=== PATIENT | male | born 1970 | race Caucasian/White ===

== ENCOUNTER 2020-05-07 18:08 | Emergency (ER) | payer OTHER ==
--- OUTSIDE RECORDS SUMMARY | 2020-05-07 18:10 | XMS REPORT | Clinical Summary ---
:1970 Author Organization [facility] Address [address] [place] [id number] Care Team Providers Name Role Phone Omar Sutherland MD Primary Care Provider [phone] Allergies No Known Active Allergies Medications Medication Sig Dispensed Refills Start Date End Date Status meloxicam (MOBIC) 7.5 Take 7.5 mg by 0 06/27/2018 Active mg tablet mouth daily. with food Active Problems Problem Noted Date Obesity (BMI 30-39.9) 07/19/2018 Primary osteoarthritis involving multiple joints 07/19 LAP-BAND surgery status 07/19/2018 Surgical History Surgery Date Site/Laterality Comments OTHER SURGICAL HISTORY 2008 lap band Family History Medical History Relation Name Comments Diabetes Father Heart disease Father Thyroid disease Father Heart disease Maternal Grandmother Diabetes Mother Ovarian cancer Mother Uterine cancer Mother Heart disease Other maternal uncle Skin cancer Paternal Grandfather Breast cancer Paternal Grandmother Relation Name Status Comments Father Maternal Grandmother Mother Other Paternal Grandfather Paternal Grandmother Social History Tobacco Use Types Packs/Day Years Used Date Former Smoker Smokeless Tobacco: Former User Sex Assigned at Date Recorded Not on file Last Filed Vital Signs Not on file Plan of Treatment Health Maintenance Due Date Last Done Comments COVID-19 VACCINE (1 of 2) 1987 INFLUENZA VACCINE 11/10/2019 Results Not on fileafter 05/07/2019 Advance Directives For more information, please contact: [phone] Type Date Recorded 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
--- OUTSIDE RECORDS SUMMARY | 2020-05-07 18:10 | XMS REPORT | Summary of Care ---
:1970 Author Organization [facility] Address [address] [place] [id number] Care Team Providers Name Role Phone Omar Sutherland Primary Care Provider Reason for Visit Reason Comments Back Pain right lower back x 2 days Encounter Details Date Type Department Care Team Description 05/07/2020 Urgent Care [facility] Family Alicia Xiong, PA [address] [place] [address] [place] [id number] Acute right-sided low back pain without sciatica (Primary Dx); [facility] Provider, [facility] Elevated BP without diagnosis of hyperte nsion [address] [place] [id number] Allergies No Known Allergiesdocumented as of this encounter (statuses as of 05/07/2020) Medications Medication Sig Dispensed Refills Start Date End Date Status meloxicam 15 mg tablet Take 15 mg by 0 Active mouth daily. methocarbamoL (ROBAXIN) Take 1 tablet 10 tablet 0 05/07/2020 0 05/12/2020 Active 500 mg by mouth 2 tabletIndications: (two) times Acute right-sided low daily as needed back pain without (Muscle sciatica strain/spasm) for up to 5 days. documented as of this encounter (statuses as of 05/07/2020) Active Problems No known active problemsdocumented as of this encounter (statuses as of 05/07/2020) Social History Tobacco Use Types Packs/Day Years Used Date Former Smoker Smokeless Tobacco: Never Used Qu it: 2016 Tobacco Cessation: Counseling Given: Yes Alcohol Use Drinks/Week oz/Week Comments Not Currently Alcohol Habits Answer Date Recorded How often do you have a drink containing alcohol? Never 05/07/2020 How many drinks containing alcohol do you have on a typical Not asked 05/07/2020 day when you are drinking? How often do you have six or more drinks on one occasion? 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 documented as of this encounter Last Filed Vital Signs Vital Sign Reading Time Taken Comments Blood Pressure 155/96 05/07/2020 10:52 AM CABLE SPLICER HELPER Pulse 59 05/07/2020 10:46 AM CABLE SPLICER HELPER Temperature 36 C (96.8 F) 05/07/2020 10:46 AM CABLE SPLICER HELPER Respiratory Rate 20 05/07/2020 10:46 AM CABLE SPLICER HELPER Oxygen Saturation 99% 05/07/2020 10:46 AM CABLE SPLICER HELPER Inhaled Oxygen Concentration - - Weight 128.4 kg (283 lb) 05/07/2020 10:46 AM CABLE SPLICER HELPER Height 190.5 cm (6' 3") 05/07/2020 10:46 AM CABLE SPLICER HELPER Body Mass Index 35.37 05/07/2020 10:46 AM CABLE SPLICER HELPER documented in this encounter Patient Instructions Patient InstructionsLauryn Xiong PA - 05/07/2020 10:40 AM CST Patient Education Back Exercises: Abdominal Lift Brace with Marching The abdominal lift brace with june strengthens your lower abdominal muscles, helping you keep your pelvis and back stable: Lie on the floor with both knees bent. Put your feet flat on the floor and your arms by your sides. Tighten your abdominal muscles. Be sure to continue to breathe. Lift one bent knee about 2 inches then return it to the floor and lift the other about 2 inches.Keep your abdominal muscles tight and continue to breathe. These motions should be slow and controlled without your pelvis rocking side to side. [id number]. [employer] reviewed this educational content on 06/09/201719991637-9274 [employer] [place] [address], [place] [address]. All rights reserved. This information is not intended as a substitute for professional medical care. Always follow your healthcare professional's instructions. Patient Education Back Exercises: Back Release Do this exercise on your hands and knees. Keep your knees under your hips and your hands under your shoulders. Relax your abdominal and buttocks muscles, lift your head, and let your back sag. Be sure to keepyour weight evenly distributed. Dont sit back on your hips. Hold [id number]. Return to starting position. Tuck your head and lift (arch) your back. Hold for 5 seconds Return to starting position. [id number]. [employer] last reviewed this educational content on 06/09/201719993119-8440 [employer]. [address] [place] [address]. All rights reserved. This information is not intended as a substitute for professional medical care. Always follow your healthcare professional's instructions. Patient Education Back Exercises: Leg Pull To start, lie on your back with your knees bent and feet flat on the floor. Dont press your neck or lower back to the floor. Breathe deeply. You should feel comfortable and relaxed in this position. Pull one knee to your chest. Hold for30 to 60seconds. Return to starting position. [id number]. Switch legs. For a double leg pull, pull both legs to your chest at the same time. [id number]. For your safety, check with your healthcare provider before starting an exercise program. [employer] last reviewed this educational content on 06/09/2017 [employer]. [address] [place] [address]. All rights reserved. This information is not intended as a substitute for professional medical care. Always follow your healthcare professional's instructions. Patient Education Back Exercises: Leg Reach Do this exercise on your hands and knees. Keep your knees under your hips and your hands under your shoulders. Keep your spine in a neutral position (not arched or sagging). Be sure to maintain your necks natural curve: Extend one leg straight back. Dont arch your back or let your head or body sag. Hold [id number]. Return to starting position. Repeat 5times. Switch legs. [employer] last reviewed this educational content on 06/09/201719990509-4624 [employer]. [address] [place] [address]. All rights reserved. This information is not intended as a substitute for professional medical care. Always follow your healthcare professional's instructions. Patient Education Back Exercises: Lower Back Rotation To start, lie on your back with your knees bent and feet flat on the floor. Dont press your neck or lower back to the floor. Breathe deeply. You should feel comfortable and relaxed in this position. Drop both knees to one side. Turn your head to the other side. Keep your shoulders flat on the floor. Do not push through pain. Hold [id number]. Slowly switch sides. Repeat2 to 5times. [employer] last reviewed this educational content on 06/09/201719998060-7039 [employer]. [address] [place] [address]. All rights reserved. This information is not intended as a substitute for professional medical care. Always follow your healthcare professional's instructions. Patient Education Back Exercises: Lower Back Stretch To start, sit in a chair with your feet flat on the floor. Shift your weight slightly forward. Relax, and keep your ears, shoulders, and hips aligned while you do the following: Sit with your feet well apart. Bend forward and touch the floor with the backs of your hands. Relax and let your body drop. Hold for 20seconds. Return to starting position. Repeat 2times. Note: If you've had back or hip surgery, talk with your healthcare provider before doing this stretch. [employer] last reviewed this educational content on 07/11/201919994653-4401 [employer]. All rights reserved. This information is not intended as a substitute for professional medical care. Always follow your healthcare professional's instructions. Patient Education Methocarbamol tablets Brand Name: Robaxin What is this medicine? METHOCARBAMOL (meth oh LOGAN ba mole) helps to relieve pain and stiffness in muscles caused by strains, sprains, or other injury to your muscles. How should I use this medicine? Take this medicine by mouth with a full glass of water. Follow the directions on the prescription label. Take your medicine at regular intervals. Do not take your medicine more often than directed. Talk to your carburizing furnace operator regarding the use of this medicine in children. Special care may be needed. What side effects may I notice from receiving this medicine? Side effects that you should report to your doctor or health care coordinator as soon as possible: allergic reactions like skin rash, itching or hives, swelling of the face, lips, or tongue breathing problems confusion seizures unusually weak or tired Side effects that usually do not require medical attention (report to your doctor or health care coordinator if they continue or are bothersome): dizziness headache metallic taste tiredness upset stomach What may interact with this medicine? Do not take this medication with any of the following medicines: narcotic medicines for cough This medicine may also interact with the following medications: alcohol antihistamines for allergy, cough and cold certain medicines for anxiety or sleep certain medicines for depression like amitriptyline, fluoxetine, sertraline certain medicines for seizures like phenobarbital, primidone cholinesterase inhibitors like neostigmine, ambenonium, and pyridostigmine bromide general anesthetics like halothane, isoflurane, methoxyflurane, propofol local anesthetics like lidocaine, pramoxine, tetracaine medicines that relax muscles for surgery narcotic medicines for pain phenothiazines like chlorpromazine, mesoridazine, prochlorperazine, thioridazine What if I miss a dose? If you miss a dose, take it as soon as you can. If it is almost time for your next dose, take only the next dose. Do not take double or extra doses. Where should I keep my medicine? Keep out of the reach of children. Store at room temperature between 20 and 25 degrees C (68 and 77 degrees F). Keep container tightly closed. Throw away any unused medicine after the expiration date. What should I tell my health care provider before I take this medicine? They need to know if you have any of these conditions: kidney disease seizures an unusual or allergic reaction to methocarbamol, other medicines, foods, dyes, or preservatives or trying to get breast-feeding What should I watch for while using this medicine? Tell your doctor or health care coordinator if your symptoms do not start to get better or if they get worse. You may get drowsy or dizzy. Do not drive, use machinery, or do anything that needs mental alertnessuntil you know how this medicine affects you. Do not stand or sit up quickly, especially if you are an older patient. This reduces the risk of dizzy or fainting spells. Alcohol may interfere with the effect of this medicine. Avoid alcoholic drinks. If you are taking another medicine that also causes drowsiness, you may have more side effects. [facility] care provider a list of all medicines you use. Your doctor will tell you how much medicine to take. Do not take more medicine than directed. Call emergency for help if you have problems breathing or unusual sleepiness. NOTE:This sheet is a summary. It may not cover all possible information. If you have questions aboutthis medicine, talk to your doctor, pharmacist, or health care provider. Copyright 2018 [employer] E SPLICER HELPER documented in this encounter Progress Notes Damari Noyola RN - 05/07/2020 10:40 AM CST Will Dwyer is a 50 year old male here for Chief Complaint Patient presents with Back Pain right lower back x 2 days Duration of Symptoms: 2 days Patient came in for complains of right lower back pain radiates to lower abdomen x 2 days. Denies recent injury or trauma. Denies numbness or tinlging to extremeities. Denies urinary symptoms or hematuria. Awake and alert x 4. Ambulatory with steady gait. Respirations even and non-labored. Skin dry and warm. Damari Reyes RN 05/07/2020 10:50 AM Lauryn Terrazas PA - 05/07/2020 10:40 AM CST Cc: Chief Complaint Patient presents with Back Pain right lower back x 2 days Will Dwyer is a 50 year old male. Patient here for R sided low back pain that began 2 days ago after working in the yard. Back Pain Location: Lumbar spine Quality: feels tight. Duration: 2 days Timing: Constant Progression: Unchanged Chronicity: New Context: not emotional stress, not falling, not MCA and not MVA Context comment: + working in the yard moving things around (denies heavy objects) Relieved by: Nothing Worsened by: Nothing Ineffective treatments: meloxicam 15 mg from PCP. Associated symptoms: no abdominal pain, no abdominal swelling, no bladder incontinence, no bowel incontinence, no chest pain, no dysuria, no fever, no headaches, no leg pain, no numbness, no paresthesias, no pelvic pain, no perianal numbness, no tingling, no weakness and no weight loss Allergies Will has No Known Allergies. Medications No outpatient medications prior to visit. No facility-administered medications prior to visit. Histories History reviewed. No pertinent past medical history. History reviewed. No pertinent surgical history. Social History Socioeconomic History Marital status: Spouse name: Not on file Number of children: Not on file Years of education: Not on file Highest education level: Not on file Occupational History Not on file Social Needs Financial resource strain: Not on file Food insecurity Worry: Not on file Inability: Not on file Transportation needs Medical: Not on file Non-medical: Not on file Tobacco Use Smoking status: Former Smoker Smokeless tobacco: Never Used Substance and Sexual Activity Alcohol use: Not Currently Frequency: Never Binge frequency: Never Drug use: Never Sexual activity: Not on file Lifestyle Physical activity Days per week: Not on file Minutes per session: Not on file Stress: Not on file Relationships Social connections Talks on phone: Not on file Gets together: Not on file Attends bahai service: Not on file Active member of club or organization: Not on file Attends meetings of clubs or organizations: Not on file Relationship status: Not on file Intimate partner violence Fear of current or ex partner: Not on file Emotionally abused: Not on file Physically abused: Not on file Forced sexual activity: Not on file Other Topics Concern Not on file Social History Narrative Lives with and kids Family History Problem Relation Age of Onset No Significant Medical Problems Mother No Significant Medical Problems Father Review of Systems Constitutional: Negative for activity change, appetite change, chills, fever, unexpected weight change and weight loss. Respiratory: Negative for chest tightness and shortness of breath. Cardiovascular: Negative for chest pain, palpitations and leg swelling. Gastrointestinal: Negative for abdominal pain, bowel incontinence, constipation, diarrhea, nausea and vomiting. Genitourinary: Negative for bladder incontinence, dysuria, urgency, frequency, hematuria, flank pain, decreased urine volume, difficulty urinating, pelvic pain and nocturia. Musculoskeletal: Positive for back pain. Negative for arthralgias, gait problem, joint swelling, myalgias, neck pain and neck stiffness. Skin: Negative for color change. Neurological: Negative for dizziness, tingling, weakness, light-headedness, numbness, headaches and paresthesias. Endocrine: Negative for weight loss. Vital Signs BP (!) 155/96 (BP Location: Right arm, Patient Position: Sitting, BP CUFF SIZE: Adult Large) | Pulse 59 | Temp 36 C (96.8 F) (Oral) | Resp 20 | Ht 6' 3" (1.905 m) | Wt 283 lb (128.4 kg) | SpO2 99% | BMI 35.37 kg/m Physical Exam Vitals signs and nursing note reviewed. Constitutional: General: He is not in acute distress. Appearance: He is well-developed. He is not ill-appearing, toxic-appearing or diaphoretic. HENT: Head: Normocephalic and atraumatic. Right Ear: External ear normal. Left Ear: External ear normal. Eyes: Conjunctiva/sclera: Conjunctivae normal. Neck: Musculoskeletal: Normal range of motion. Cardiovascular: Rate and Rhythm: Normal rate and regular rhythm. Heart sounds: Normal heart sounds. Pulmonary: Effort: Pulmonary effort is normal. Breath sounds: Normal breath sounds. Abdominal: General: Bowel sounds are normal. There is no distension. Palpations: Abdomen is soft. Abdomen is not rigid. Tenderness: There is no abdominal tenderness. There is no right CVA tenderness, left CVA tenderness, guarding or rebound. Musculoskeletal: Lumbar back: He exhibits decreased range of motion (decreased left and right rotation due to pain), tenderness (muscle tenderness/tightness at R lower back) and pain. He exhibits no swelling, no edema, no deformity, no laceration and normal pulse. Back: Right lower leg: No edema. Left lower leg: No edema. Skin: General: Skin is warm and dry. Neurological: Mental Status: He is alert and oriented to person, place, and time. Sensory: No sensory deficit. Motor: No abnormal muscle tone. Gait: Gait normal. Psychiatric: Behavior: Behavior normal. Assessment/Plan Acute right-sided low back pain without sciatica (primary encounter diagnosis) Plan: methocarbamoL (ROBAXIN) 500 mg tablet Likely 2/2 muscle strain/spasm. Patient already on meloxicam per PCP. Denies pmh of seizures. Will start on robaxin. Take as directed. Avoid etoh use. Do not take if driving or operating machinery. Follow-up with PCP as needed, recommend imaging if no improvement. Educated on the following at home care: Ice 15 min every 2-3 hours as needed; alternate with warm compress Stretches 2-3 times daily Icy hot as needed Massages as needed Avoid heavy lifting > 10 lbs Wear good, supportive tennis shoes Er--> worsening condition; increasing pain, incontinence, weakness, numbness/tingling in groin Elevated BP without diagnosis of hypertension Plan: BP 155/96 at recheck. Denies pmh of HTN. No cp, palpitations, sob, RAY, dizziness, syncope. Recommendmonitoring and follow-up with PCP. Watch blood pressure: check 2-3 times daily and log. Look for high numbers >= 130/80. Low salt Low caffeine diet Low alcohol Avoid tobacco products. Avoid decongestants Heart Healthy Exercise: total of 150 minutes of cardio: walking,swimming, hiking, biking every week. Heart healthy diet: low fat/carb/sugar diet; increase lean meat-chicken, turkey, fish; increase vegetables/fruits ( still be careful because elevated sugar level) Er--> chest pain, dizziness, passing out, fluttering of heart, shortness of breath. Pt ed/precautions given in detail regarding conditions/medicaitons. Er precautions given. Pt reportsunderstanding and agrees. rtc if s/s worsen or do not improve ; Plan of care, desired health behaviors, goals, Ddx, & any prescribed or OTC medications discussed with patient. Education resources & self management tools provided and reviewed with AVS. Patient/guardian/family verbalized understanding & agrees to plan of care. Barriers to care: NONE Ability to manage care: Good This visit did not involve counseling and coordination that comprised more than 50% of the visit time. documented in this encounter Plan of Treatment Health Maintenance Due Date Last Done Comments Depression Screening 1983 SARS-CoV-2 (COVID-19) Vaccine (1 1987 of 2) DTaP,Tdap,and Td Vaccines (1 - 1990 Tdap) INFLUENZA VACCINE (#1) 2019 Colorectal Cancer Screening 2021 PNEUMOCOCCAL 0-64 YEARS COMBINED Aged Out No longer eligible based on SERIES patient's age to complete this topic documented as of this encounter Results Not on filedocumented in this encounter Visit Diagnoses Diagnosis Acute right-sided low back pain without sciatica - Primary Elevated BP without diagnosis of hyperte nsion documented in this encounter documented as of this encounter
--- OUTSIDE RECORDS SUMMARY | 2020-05-07 18:10 | XMS REPORT | Continuity of Care Document ---
:1970 Author Organization [facility] t Address [address] [place] [address] Care Team Providers Name Role Phone Andre Sutherland MD Primary Care Physician Provider, Urgent Care Attending Clinician Unavailable Problems Condition Condition Condition Status Onset Resolution Last Treating Co mments Source Name Details Category Date Date Treatment Clinician Date Obesity Obesity Disease Active [place] (BMI (BMI 4-10 [facility] 30-39.9) 30-39.9) 00:00: st 00 Primary Primary Disease Active [place] osteoarthr osteoarthr 4-10 Me thodi itis itis 00:00: st involving involving 00 multiple multiple joints joints LAP-BAND LAP-BAND Disease Active [place] on surgery surgery 4-10 Method[facility] status status 00:00: st 00 Allergies, Adverse Reactions, Alerts This patient has no known allergies or adverse reactions. Family History Family Member Diagnosis Comments Start Date Stop Date Source Natural father Diabetes [place] [facility] Natural father Heart disease [place] [facility] Natural father Thyroid disease [place] [facility] Maternal grandmother Heart disease [place] Natural mother Diabetes [place] [facility] Natural mother Ovarian cancer [place] Natural mother Uterine cancer [place] Other Heart disease [place] [facility] Paternal grandfather Skin cancer Nicole fonseca [facility] Paternal grandmother Breast cancer [place] [facility] Social History Social Habit Start Date Stop Date Quantity Comments Source Sex Assigned At [facility] ethodist Tobacco use and 2018-07-19 2018-07-19 Former user [place] [facility] exposure 00:00:00 00:00:00 Smoking Status Start Date Stop Date Source Former smoker 2018-07-19 00:00:00 2018-07-19 00:00:00 Reji Garcia Medications Ordered Filled Start Stop Current Ordering Indication Dosage Frequency Signature Comments Components Source Medication Medication Date Date Medication? Clinician (SIG) Name Name meloxicam 2019-0 Yes 7.5mg QD Take 7.5 Nicole ston (MOBIC) 7.5 3-19 mg by [facility] mg tablet 00:00: mouth st 00 daily. with food Procedures This patient has no known procedures. Plan of Care Planned Activity Planned Date Details Comments Source Future Scheduled 2019-11-10 INFLUENZA VACCINE [place] [facility] Test 00:00:00 [code = INFLUENZA VACCINE] Future Scheduled 1987 COVID-19 VACCINE (1 [place] [facility] Test 00:00:00 of 2) [code = COVID-19 VACCINE (1 of 2)] Encounters Start End Encounter Admission Attending Care Care Encounter Source Date/Time Date/Time Type Type Clinicians Facility Department ID 2020-05-07 2020-05-07 Urgent Provider, [facility] [id number] 10:38:56 10:58:56 [facility] [id number] [facility] [id number] [phone] [address]al [address] Results This patient has no known results.
--- NOTE | 2020-05-07 20:27 | ER ---
Nurse's Notes [facility] Name: Will Dwyer Age: 50 yrs Sex: Male : 1970 Arrival Date: 05/07/2020 Time: 18:10 Bed Waiting Private MD: Omar Sutherland T Diagnosis: Presentation: 05/07 18:38 Chief complaint: Patient states: right low back pain x 2-3 days ago. Pt states "I was aa5 seen at urgent care earlier today and they prescribed me Robaxin but it hasn't helped at all and it has gotten worse". Coronavirus screen: Client denies travel out of the [place] in the last 14 days. At this time, the client does not indicate any symptoms associated with coronavirus-19. Ebola Screen: Patient negative for fever greater than or equal to 101.5 degrees Fahrenheit, and additional compatible Ebola Virus Disease symptoms. Initial Sepsis Screen: Does the patient meet any 2 criteria? No. Patient's initial sepsis screen is negative. Does the patient have a suspected source of infection? No. Patient's initial sepsis screen is negative. Risk Assessment: Do you want to hurt yourself or someone else? Patient reports no desire to harm self or others. Onset of symptoms was April 2020. 18:38 Acuity: RAQUEL 3 aa5 18:38 Method Of Arrival: Ambulatory aa5 Historical: - Allergies: 18:40 No Known Allergies; aa5 - PMHx: 18:40 None; aa5 - Immunization history:: Adult Immunizations unknown. - Social history:: Smoking status: Patient denies any tobacco usage or history of. Vital Signs: 18:39 BP 157 / 84; Pulse 50; Resp 18 S; Temp 98.0(TE); Pulse Ox 100% on R/A; aa5 ED Course: 18:10 Patient arrived in ED. ag5 18:10 Omar Sutherland MD is Private Physician. ag5 18:38 Arm band placed on. aa5 18:39 Triage completed. aa5 Administered Medications: No medications were administered Outcome: 20:27 Patient left the ED. rv Signatures: Betsy Jiang RN RN aa Brock Roa RN RN Karol Hayes [facility]
[2020-05-07 20:33] VITALS: BP 157/84; TEMP 98; O2SAT 100
== END 2020-05-07 20:27 | disposition left against medical advice (07) ==
LOC: ER 18:08
DX: M54.5 Low back pain (principal); Z53.21 Procedure and treatment not carried out due to patient leaving prior to being seen by health care provider
CPT/HCPCS: 99281

== ENCOUNTER 2023-02-24 07:55 | Emergency (ER) | payer OTHER ==
--- OUTSIDE RECORDS SUMMARY | 2023-02-24 07:58 | XMS REPORT | Continuity of Care Document ---
:1970 Author Organization [facility] t Address [address] [place] [address] Care Team Providers Name Role Phone Omar Sutherland Primary Care Physician THOMAS PIRES Attending Clinician Unavailable Nurse, Ember Pob Immunization Attending Clinician Unavailable Thomas Pires DO Attending Clinician STEPHANY FIGUEROA Attending Clinician Unavailable Provider, [facility] Attending Clinician Unavailable Lauryn Baez Attending Clinician LAURYN XIONG Attending Clinician Unavailable Payers Payer Name Policy Type Policy Number Effective Date Expiration Date Chema MONTANEZ II [id number] 2020 00:00:00 Problems Condition Condition Condition Status Onset Resolution Last Treating Co mments Source Name Details Category Date Date Treatment Clinician Date Obesity Obesity Disease Active [facility] (BMI (BMI 4-10 st 30-39.9) 30-39.9) 00:00: Hospit a 00 l Primary Primary Disease Active [facility] osteoarthr osteoarthr 4-10 st itis itis 00:00: Hospita involving involving 00 l multiple multiple joints joints LAP-BAND LAP-BAND Disease Active [place] di surgery surgery 4-10 st status status 00:00: Hospita 00 l No known No known Disease Unive rs active active ity of problems problems [facility] Allergies, Adverse Reactions, Alerts Allergy Allergy Status Severity Reaction(s) Onset Inactive Treating Comm ents Source Name Type Date Date Clinician NO KNOWN Drug Active Univers ALLERGIE Class ity of S [facility] Family History Family Member Diagnosis Comments Start Date Stop Date Source Paternal grandfather Skin cancer Met [facility] Paternal grandmother Breast cancer [facility] Natural father Diabetes [facility] Natural father Heart disease [facility] Maternal grandmother Heart disease [facility] Natural mother Diabetes [facility] Natural mother Ovarian cancer Method [facility] Natural mother Uterine cancer Method [facility] Other [facility] Social History Social Habit Start Date Stop Date Quantity Comments Source Sexual orientation 2020-10-14 Heterosexual Meth odist 08:53:13 (finding) Hospital Exposure to Not sure University of SARS-CoV-2 (event) [facility] History SDKY University o f Alcohol Comment [facility] History of tobacco Current smoker [facility] use Hospital Alcohol intake 2020-10-21 2020-10-21 Ex-drinker [facility] 00:[facility]:00 (finding) Hospital History of Social 2020-10-21 2020-10-[address] function 00:00:00 00:00:00 Hospital Tobacco use and 2020-05-07 2020-05-07 Never used Universit y of exposure 00:00:00 00:00:00 [facility] History SDOH 2020-05-07 2020-05-07 1 University o f Alcohol Frequency 00:00:00 00:00:00 [facility] edical Branch History SDOH 2020-05-07 2020-05-07 99 University o f Alcohol Std Drinks 00:00:00 00:00:00 [facility] History SDOH 2020-05-07 2020-05-07 1 University o f Alcohol Binge 00:00:00 00:00:00 [facility] Sex Assigned At [birth year] Universit y of 00:00:00 00:00:00 [facility] Smoking Status Start Date Stop Date Source Former smoker 2020-05-07 00:00:00 2020-05-07 00:00:00 [facility] Medications Ordered Filled Start Stop Current Ordering Indication Dosage Frequency Signature Comments Components Source Medication Medication Date Date Medication? Clinician (SIG) Name Name meloxicam Yes 15mg Take 15 mg Un heidi 15 mg 27 by mouth ity of tablet 17:00: daily. [address] meloxicam Yes 15mg Take 15 mg Un heidi 15 mg 1-27 by mouth ity of tablet 17:00: daily. [address] meloxicam Yes 15mg Take 15 mg Un heidi 15 mg 1-27 by mouth ity of tablet 11:00: daily. [address] methocarbam 2020- No [id number] 500mg Take 1 Univers oL 05-07 tablet by ity of (ROBAXIN) 00:00: 05:59 [place] 500 mg [place] :00 (two) Medical tablet times Branch daily as needed (Muscle strain/spa sm) for up to 5 days. methocarbam 2020- No [id number] 500mg Take 1 Univers oL 05-07 tablet by ity of (ROBAXIN) 00:00: 05:59 [place] 500 mg 00 :00 (two) Medical tablet times Branch daily as needed (Muscle strain/spa sm) for up to 5 days. meloxicam Yes 7.5mg QD Take 7.5 Met hodi (MOBIC) 7.5 3-[address] mg tablet 00:00: mouth Hospita 00 daily. l with food Vital Signs Vital Name Observation Time Observation Value Comments Source Systolic blood 2020-05-07 16:52:00 155 mm[Hg] [facility] Diastolic blood 2020-05-07 16:52:00 96 mm[Hg] [facility] Heart rate 2020-05-07 16:46:00 59 /min [facility] Body temperature 2020-05-07 16:46:[address] [facility] Respiratory rate 2020-05-07 16:46:00 20 /min [facility] Body height 2020-05-07 16:46:00 190.5 cm [facility] Body weight 2020-05-07 16:46:00 128.368 kg [facility] BMI 2020-05-07 16:46:00 35.37 kg/m2 [facility] Oxygen saturation in 2020-05-07 16:46:00 99 /min [facility] blood by [facility] Pulse oximetry Branch Systolic blood 2020-05-07 16:52:00 155 mm[Hg] Univer sity of pressure [facility] Diastolic blood 2020-05-07 16:52:00 96 mm[Hg] Unive rsity of pressure [facility] Heart rate 2020-05-07 16:46:00 59 /min [facility] Body temperature 2020-05-07 16:46:00 36 [facility] 2020-05-07 16:46:00 20 /min [facility] Body height 2020-05-07 16:46:00 190.5 cm [facility] Body weight 2020-05-07 16:46:00 128.368 kg [facility] BMI 2020-05-07 16:46:00 35.37 kg/m2 [facility] Oxygen saturation in 2020-05-07 16:46:00 99 /min [facility] Arterial blood by [facility] Pulse oximetry [place] Procedures Procedure Date / Time Performed Performing Clinician Kristy michelle SARS-COV-2 COVID-19 2021-04-22 16:14:37 Doctor Unassigned, [facility] Name [facility] BOOSTER,0.25ML,IM (MODERNA) Plan of Care Planned Activity Planned Date Details Comments Source Future Scheduled 2023-02-02 Screening for [facility] Test 12:32:59 malignant neoplasm of colon (procedure) [code = 610178477] Future Scheduled 2023-02-02 Screening for [facility] Test 12:32:59 malignant neoplasm of colon (procedure) [code = 505120298] Future Scheduled 2023-02-02 Screening for [facility] Test 12:32:59 malignant neoplasm of colon (procedure) [code = 199381425] Future Scheduled 2023-02-02 Hepatitis C [facility] Test 12:32:59 screening (procedure) [code = 813465949] Future Scheduled 2023-02-02 Screening for [facility] Test 12:32:59 malignant neoplasm of colon (procedure) [code = 919442731] Future Scheduled 2023-02-02 Screening for [facility] Test 12:32:59 malignant neoplasm of colon (procedure) [code = 872583706] Future Scheduled 2023-02-02 SHINGLES VACCINES [facility] Test 12:32:59 (1 of 2) [code = SHINGLES VACCINES (1 of 2)] Future Scheduled 2023-02-02 COVID-19 VACCINE (3 [facility] Test 12:32:59 - season) [code = COVID-19 VACCINE (3 - season)] Future Scheduled 2023-02-02 INFLUENZA VACCINE [facility] Test 12:32:59 (#1) [code = INFLUENZA VACCINE (#1)] Encounters Start End Encounter Admission Attending Care Care Encounter Source Date/Time Date/Time Type Type Clinicians Facility Department ID 2021-04-22 2021-04-22 Outpatient Trevor PIRES [facility] [id number] Univers 09:10:00 09:10:00 THOMAS gill [facility] 2021-04-22 2021-04-22 Imm/Inj Nurse, Adc Pob Immunization [facility] [id number] Univers 09:10:00 09:10:00 Visit Thomas Pires [id number] ity [facility] [id number] [place] PROFESSIO [phone] Wy dical NAL [address] BUILDING 2020-10-21 2020-10-21 Outpatient STEPHANY FIGUEROA [facility] [id number] [place] 00:00:00 00:00:[address] 2020-07-06 2020-07-[address] [facility] [id number] Univers 10:35:00 10:35:00 ity [facility] 2020-06-08 2020-06-[address] [facility] [id number] Univers 10:35:00 [facility] 2020-05-07 Urgent Provider, [facility] [id number] Univers 10:38:56 10:58:56 Care Lauryn Xiong [facility] [id number] ity [facility] [id number] [place] jacqueline Professio [phone] Wy dical nal [address] 2020-05-07 2020-05-07 Urgent Provider, [facility] [id number] 10:38:56 10:58:56 Care [facility] Urgent [facility] [id number] Care [place] [id number] Professsilvino [phone] [place] [address] [address] 2020-05-07 2020-05-07 [facility] [id number] Univers 10:40:00 10:40:00 LAURYN gill [facility] 2020-05-07 2020-05-07 [facility] [id number] Univers 00:00:00 00:00:00 Lauryn [facility] [id number] i ty of [place] [id number] Lefty as Jatin [phone] Wy dical [address] One Results This patient has no known results.
[2023-02-24] MEDS ORDERED: MORPHINE 4 MG/ML SYR ONE (08:40)
--- NOTE | 2023-02-24 08:50 | ER ---
Nurse's Notes [facility] Name: Will Dwyer Age: 53 yrs Sex: Male : 1970 Arrival Date: 02/24/2023 Time: 07:55 Bed 4 Private MD: Diagnosis: Intervertebral disc disorders with radiculopathy, lumbar region Presentation: 02/24 08:04 Chief complaint: Patient states: Back pain getting worse since Tuesday. Had CT scan 2 ll1 days ago at [place]. Muscle relaxer and steroids not helping. Coronavirus screen: Client denies travel out of the [place] in the last 14 days. At this time, the client does not indicate any symptoms associated with coronavirus-19. Ebola Screen: Patient denies travel to an Ebola-affected area in the 21 days before illness onset. Initial Sepsis Screen: Does the patient meet any 2 criteria? No. Patient's initial sepsis screen is negative. Does the patient have a suspected source of infection? No. Patient's initial sepsis screen is negative. Risk Assessment: Do you want to hurt yourself or someone else? Patient reports no desire to harm self or others. Onset of symptoms was February 19, 2023. 08:04 Method Of Arrival: Ambulatory ll1 08:04 Acuity: RAQUEL 3 ll1 Triage Assessment: 08:06 General: Appears uncomfortable, Behavior is calm, cooperative, appropriate for age. ll1 Pain: Complains of pain in back/L leg Quality of pain is described as aching, throbbing. Musculoskeletal: Circulation, motion, and sensation intact. Capillary refill < 3 seconds. Historical: - Allergies: 08:06 No Known Allergies; ll1 - PMHx: 08:06 Arthritis; ll1 - Immunization history:: Adult Immunizations up to date. - Social history:: Smoking status: Patient denies any tobacco usage or history of. Screenin:41 [facility] ED Fall Risk Assessment (Adult) History of falling in the last 3 months, db including since admission No falls in past 3 months (0 pts) Confusion or Disorientation No (0 pts) Intoxicated or Sedated No (0 pts) Impaired Gait No (0 pts) Mobility Assist Device Used No (0 pt) Altered Elimination No (0 pt) Score/Fall Risk Level 0 - 2 = Low Risk Oriented to surroundings, Maintained a safe environment. Abuse screen: Denies threats or abuse. Denies injuries from another. Nutritional screening: No deficits noted. Tuberculosis screening: No symptoms or risk factors identified. Assessment: 08:40 Reassessment: Patient appears in no apparent distress at this time. Patient and/or db family updated on plan of care and expected duration. Pain level reassessed. Patient is alert, oriented x 3, equal unlabored respirations, skin warm/dry/pink. CHRONIC BACK PAIN. General: Appears in no apparent distress. comfortable, Behavior is calm, cooperative. Neuro: Level of Consciousness is awake, alert, obeys commands, Oriented to person, place, time, situation. Respiratory: Airway is patent Respiratory effort is even, unlabored, Respiratory pattern is regular, symmetrical. Vital Signs: 08:04 BP 162 / 97; Pulse 56; Resp 18; Temp 98; Pulse Ox 98% ; Pain 2/10; ll1 08:30 BP 153 / 93; Pulse 50; Resp 18; Pulse Ox 96% on R/A; db 08:04 Pain Scale: Adult ll1 ED Course: 07:59 Patient arrived in ED. mg5 07:59 Adrienne Carrasco, RN is Primary Nurse. ph 08:03 Laura Jaime FNP is [facility] jh7 08:03 Williams Hope MD is Attending Physician. 7 08:04 Arm band placed on Patient placed in an exam room, on a stretcher. ll1 08:06 Triage completed. ll1 09:12 No provider procedures requiring assistance completed. Patient did not have IV access ph during this emergency room visit. 09:13 Patient has correct armband on for positive identification. Bed in low position. Call ph light in reach. Administered Medications: 08:22 Drug: morphine IM 4 mg IM once Route: IM; Site: right deltoid; db 09:14 Follow up: Response: No adverse reaction ph 08:22 Drug: Ondansetron Oral Disintegrating Tablet Oral Disintegrating Tablet 4 mg PO once db Route: PO; 09:13 Follow up: Response: No adverse reaction; Pain is decreased ph Medication: 08:40 VIS not applicable for this client. db Outcome: 08:49 Discharge ordered by . jh7 09:13 Discharged to home ambulatory, ph 09:13 Condition: good 09:13 Discharge instructions given to patient, Instructed on discharge instructions, follow up and referral plans. medication usage, Demonstrated understanding of instructions, follow-up care, medications, Prescriptions given X 09:16 Patient left the ED. ph Signatures: Adrienne Carrasco RN RN Sherley Raman RN RN 1 Laura Jaime, OIL AND GAS SPECIALIST OIL AND GAS SPECIALIST jh7 Jess Cleary RN RN Nasreen Portillo 5
--- NOTE | 2023-02-24 08:50 | EDPHYS ---
Physician Documentation [facility] Name: Will Dwyer Age: 53 yrs Sex: Male : 1970 Arrival Date: 02/24/2023 Time: 07:55 Bed 4 Private MD: ED Physician Williams Hope HPI: 02/24 08:04 This 53 yrs old Male presents to ER via Ambulatory with complaints of Back Pain. community hospital 08:04 The patient presents with pain that is chronic, with no known mechanism of injury. The jh7 symptoms are located in the L1, L2, L3, L4, L5 and sacrum. Onset: The symptoms/episode began/occurred at an unknown time. and became worse 5 day(s) ago. The pain radiates to the left leg. Associated signs and symptoms: Pertinent negatives: fever, incontinence, numbness, tingling, urinary retention, weakness. The problem was sustained from unknown cause. Patient seen at [facility] on 02/22 and diagnosed with bulging discs from L1-S1. Was given a steroid shot and prescribed oral steroids and Flexeril. He reports that he has an appointment with [facility] on Tuesday, but needs something to get him through the weekend.. Historical: - Allergies: 08:06 No Known Allergies; ll1 - PMHx: 08:06 Arthritis; ll1 - Immunization history:: Adult Immunizations up to date. - Social history:: Smoking status: Patient denies any tobacco usage or history of. ROS: 08:04 Constitutional: Negative for fever, chills, and weight loss, Eyes: Negative for injury, jh7 pain, redness, and discharge, Neck: Negative for injury, pain, and swelling, Cardiovascular: Negative for chest pain, palpitations, and edema, Respiratory: Negative for shortness of breath, cough, wheezing, and pleuritic chest pain, Abdomen/GI: Negative for abdominal pain, nausea, vomiting, diarrhea, and constipation, MS/Extremity: Negative for injury and deformity, Skin: Negative for injury, rash, and discoloration, Neuro: Negative for headache, weakness, numbness, tingling, and seizure, 08:04 Back: Positive for pain at rest, pain with movement, radiated pain, of the left leg, 08:04 All other systems are negative, Exam: 08:04 Constitutional: This is a well developed, well nourished patient who is awake, alert, jh7 and in no acute distress. Head/Face: Normocephalic, atraumatic. Neck: Trachea midline, no thyromegaly or masses palpated, and no cervical lymphadenopathy. Supple, full range of motion without nuchal rigidity, or vertebral point tenderness. No Meningismus. Cardiovascular: Regular rate and rhythm with a normal S1 and S2. No gallops, murmurs, or rubs. Normal PMI, no JVD. No pulse deficits. Respiratory: Lungs have equal breath sounds bilaterally, clear to auscultation and percussion. No rales, rhonchi or wheezes noted. No increased work of breathing, no retractions or nasal flaring. Abdomen/GI: Soft, non-tender, with normal bowel sounds. No distension or tympany. No guarding or rebound. No evidence of tenderness throughout. Skin: Warm, dry with normal turgor. Normal color with no rashes, no lesions, and no evidence of cellulitis. MS/ Extremity: Pulses equal, no cyanosis. Neurovascular intact. Full, normal range of motion. Neuro: Awake and alert, GCS 15, oriented to person, place, time, and situation. Cranial nerves II-XII grossly intact. Motor strength 5/5 in all extremities. Sensory grossly intact. Cerebellar exam normal. Antalgic gait. 08:04 Back: pain, that is moderate, of the sacrum and L5 and L4 and L3 and L2 and L1, Vital Signs: 08:04 BP 162 / 97; Pulse 56; Resp 18; Temp 98; Pulse Ox 98% ; Pain 2/10; ll1 08:30 BP 153 / 93; Pulse 50; Resp 18; Pulse Ox 96% on R/A; db 08:04 Pain Scale: Adult ll1 MDM: 08:03 Patient medically screened. 7 08:45 Differential diagnosis: ruptured disc, Bulging discs. Data reviewed: vital signs, community hospital nurses notes. I considered the following discharge prescriptions or medication management in the emergency department Medications were administered in the Emergency Department. See MAR. External Records Reviewed: Outpatient radiology: CT. Counseling: I had a detailed discussion with the patient and/or guardian regarding the historical points, exam findings, and any diagnostic results supporting the discharge/admit diagnosis, the need for outpatient follow up, ortho/spine, to return to the emergency department if symptoms worsen or persist or if there are any questions or concerns that arise at home. Response to treatment: the patient's symptoms have mildly improved after treatment. Special discussion: Based on the history and exam findings, there is no indication for further emergent testing or inpatient evaluation. spine. Administered Medications: 08:22 Drug: morphine IM 4 mg IM once Route: IM; Site: right deltoid; db 09:14 Follow up: Response: No adverse reaction ph 08:22 Drug: Ondansetron Oral Disintegrating Tablet Oral Disintegrating Tablet 4 mg PO once db Route: PO; 09:13 Follow up: Response: No adverse reaction; Pain is decreased ph Disposition: 10:04 Co-signature as Attending Physician, Williams Hope MD I agree with the assessment and kdr plan of care. Disposition Summary: 02/24/23 08:49 Discharge Ordered Notes: Location: [place] [address] Problem: chronic community hospital Symptoms: are unchanged community hospital Condition: Stable community hospital Diagnosis - Intervertebral disc disorders with radiculopathy, lumbar region community hospital Followup: community hospital - With: Private Physician - When: 2 - 3 days - Reason: Further diagnostic work-up Discharge Instructions: - Discharge Summary Sheet community hospital - Herniated Disk community hospital - Lumbosacral Radiculopathy community hospital Forms: - Medication Reconciliation Form community hospital - Thank You Letter community hospital - Prescription Opioid Use community hospital - Patient Portal Instructions community hospital - Leadership Thank You Letter community hospital Prescriptions: - Tramadol 50 mg Oral tablet - take 1 tablet ORAL route every 8 hours As needed as needed; 20 tablet; Refills: community hospital 0, Product Selection Permitted Signatures: Williams Hope MD MD [facility] Sherley Mae RN RN [facility] Laura Jaime FNP COMPRESS[employer] MOLDING MACHINE OPERATOR community hospital Jess Cleary RN RN db Adrienne Carrasco RN ph Corrections: (The following items were deleted from the chart) 08:36 08:04 Patient seen at [facility] on 02/22 and diagnosed with bulging disc from L1-S1. Was 7 given a steroid shot and prescribed oral steroids and Flexeril. He reports that he has an appointment with [facility] on Tuesday, but needs something to get him through the weekend.. community hospital
[2023-02-24 09:24] VITALS: TEMP 98
[2023-02-24 09:25] VITALS: BP 153/93; O2SAT 96
== END 2023-02-24 09:16 | disposition home or self-care (01) ==
LOC: ER 07:55
DX: M51.16 Intervertebral disc disorders with radiculopathy, lumbar region (principal)
CPT/HCPCS: 96372; 99284

== ENCOUNTER 2023-03-08 11:14 | Emergency (ER) | payer OTHER ==
--- OUTSIDE RECORDS SUMMARY | 2023-03-08 11:21 | XMS REPORT | Continuity of Care Document ---
:1970 Author Organization [facility] t Address [address] [place] [address] Care Team Providers Name Role Phone Omar Sutherland MD Primary Care Physician [phone] THOMAS PIRES Attending Clinician Unavailable Nurse, Ember Pob Immunization Attending Clinician Unavailable Thomas Pires DO Attending Clinician STEPHANY FIGUEROA Attending Clinician Unavailable Provider, [facility] Attending Clinician Unavailable Lauryn Baez Attending Clinician LAURYN XIONG Attending Clinician Unavailable Payers Payer Name Policy Type Policy Number Effective Date Expiration Date Chema MONTANEZ II [id number] 2020 00:00:00 Problems Condition Condition Condition Status [...] rs active active ity of problems problems [facility] Allergies, Adverse Reactions, Alerts Allergy Allergy Status Severity Reaction(s) Onset Inactive Treating Comm ents Source Name Type Date Date Clinician NO KNOWN Drug Active Univers ALLERGIE Class ity of S [facility] Family History Family Member Diagnosis Comments Start Date Stop Date Source Natural mother [facility] Natural mother Uterine cancer [facility] Natural mother Diabetes [facility] [place] Other Heart disease [facility] Paternal grandfather Skin cancer [facility] Paternal grandmother Breast cancer [facility] Natural father Diabetes [facility] [place] Natural father Heart disease [facility] Natural father Thyroid disease [facility] Maternal grandmother Heart disease [facility] Social History Social Habit Start Date Stop Date Quantity Comments Source Sexual orientation 2020-10-14 Heterosexual Meth odist 08:53:13 (finding) Hospital History of tobacco Current smoker [facility] use Hospital Exposure to Not sure University of SARS-CoV-2 (event) [facility] History [facility] University o f Alcohol Comment [facility] Alcohol intake 2020-10-21 2020-10-21 Ex-drinker Religion 00:00:00 00:00:00 (finding) Hospital History of Social 2020-10-21 2020-10-[address] function 00:00:00 00:00:00 Hospital Tobacco use and 2020-05-07 2020-05-07 Never used Universit y of exposure 00:00:00 00:00:00 [facility] History SDOH 2020-05-07 2020-05-07 1 University o f Alcohol Frequency 00:00:00 00:00:00 [facility] edical Branch History SDCA 2020-05-07 2020-05-07 99 University o f Alcohol Std Drinks 00:00:00 00:00:00 [facility] History SDOH 2020-05-07 2020-05-07 1 University o f Alcohol Binge 00:00:00 00:00:00 [facility] al Branch Sex Assigned At [birth year] Universit y of 00:00:00 00:00:00 [facility] [place] Smoking Status Start Date Stop Date Source Ex-smoker 2018-07-19 00:00:00 2018-07-19 00:00:00 [facility] Medications Ordered Filled Start Stop Current Ordering Indication Dosage Frequency Signature Comments Components Source Medication Medication Date Date Medication? Clinician (SIG) Name Name meloxicam Yes 15mg Take 15 mg Un heidi 15 mg 1-27 by mouth ity of tablet 17:00: daily. [address] meloxicam 2021-0 Yes 15mg Take 15 mg Un heidi 15 mg 1-27 by mouth ity of tablet 17:00: daily. [address] meloxicam Yes 15mg Take 15 mg Un heidi 15 mg 1-27 by mouth ity of tablet 11:00: daily. [address] methocarbam 2020- No [id number] 500mg Take 1 Univers oL 05-07 tablet by ity of (ROBAXIN) 00:00[place] 05:59 [place] :00 (two) Medical tablet times Branch daily as needed (Muscle strain/spa sm) for up to 5 days. methocarbam 2020- No [id number] 500mg Take 1 Univers oL 05-07 tablet by ity of (ROBAXIN) 00:00: 05:59 [place] 500 mg 00 :00 (two) Medical tablet times Branch daily as needed (Muscle strain/spa sm) for up to 5 days. meloxicam Yes 7.5mg QD Take 7.5 Met [facility]odi (MOBIC) 7.5 3-[address] mg tablet 00:00: [facility] 00 daily. l with food meloxicam 0 Yes 7.5mg QD Take 7.5 Met [facility] (MOBIC) 7.5 3-[address] mg tablet 00:00: [facility] 00 daily. l with food Vital Signs Vital Name Observation Time Observation Value Comments Source Systolic blood 2020-05-07 16:52:00 155 mm[facility]Hg[facility] Diastolic blood 2020-05-07 16:52:00 96 mm[Hg] [facility] Heart rate 2020-05-07 16:46:00 59 /min [facility] Body temperature 2020-05-07 16:46:[address] [facility] Respiratory rate 2020-05-07 16:46:00 20 /min [facility] Body height 2020-05-07 16:46:00 190.5 cm [facility] Body weight 2020-05-07 16:46:00 128.368 kg [facility] BMI 2020-05-07 16:46:00 35.37 kg/m2 Universi ty [facility] Oxygen saturation in 2020-05-07 16:46:00 99 /min University of Arterial blood by [facility] Pulse oximetry Branch Systolic blood 2020-05-07 16:52:00 155 mm[Hg] Univer sity of pressure [facility] Diastolic blood 2020-05-07 16:52:00 96 mm[Hg] Unive rsity of pressure [facility] Heart rate 2020-05-07 16:46:00 59 /min Universi ty [facility] Body temperature 2020-05-07 16:46:00 [facility] 2020-05-07 16:46:00 20 /[facility] Body height 2020-05-07 16:46:00 190.5 cm Universi [facility] Body weight 2020-05-07 16:46:00 128.368 kg [facility] BMI 2020-05-07 16:46:00 35.37 kg/m2 Universi [facility] Oxygen saturation in 2020-05-07 16:46:00 99 /min University of Arterial blood by [facility] Pulse oximetry Branch Procedures Procedure Date / Time Performed Performing Clinician Kristy e SARS-COV-2 COVID-19 2021-04-22 16:14:37 Doctor Unassigned, No [facility] [place] VACCINE Name [facility] BOOSTER,0.25ML,IM (MODERNA) Plan of Care Planned Activity Planned Date Details Comments Source Future Scheduled 2023-02-02 [facility] for [facility] Test 12:32:59 malignant neoplasm of colon (procedure) [code = 061534839] Future Scheduled 2023-02-02 [facility] Test 12:32:59 malignant neoplasm of colon (procedure) [code = 686351228] Future Scheduled 2023-02-02 [facility] for [facility] Test 12:32:59 malignant neoplasm of colon (procedure) [code = 212087608] Future Scheduled 2023-02-02 Hepatitis C [facility] Test 12:32:59 screening (procedure) [code = 673548326] Future Scheduled 2023-02-02 [facility] Test 12:32:59 malignant neoplasm of colon (procedure) [code = 397285286] Future Scheduled 2023-02-02 [facility] Test 12:32:59 malignant neoplasm of colon (procedure) [code = 312308137] Future Scheduled 2023-02-02 SHINGLES VACCINES [facility] Test 12:32:59 (1 of 2) [code = SHINGLES VACCINES (1 of 2)] Future Scheduled 2023-02-02 COVID-19 VACCINE (3 [facility] Test 12:32:59 - season) [code = COVID-19 VACCINE (3 - season)] Future Scheduled 2023-02-02 INFLUENZA VACCINE [facility] Test 12:32:59 (#1) [code = INFLUENZA VACCINE (#1)] Future Scheduled 2023-02-02 [facility] for [facility] Test 12:32:59 malignant neoplasm of colon (procedure) [code = 295146933] Future Scheduled 2023-02-02 [facility] for [facility] Test 12:32:59 malignant neoplasm of colon (procedure) [code = 943808079] Future Scheduled 2023-02-02 [facility] for [facility] Test 12:32:59 malignant neoplasm of colon (procedure) [code = 777292741] Future Scheduled 2023-02-02 Hepatitis C [facility] Test 12:32:59 screening (procedure) [code = 302861853] Future Scheduled 2023-02-02 [facility] for [facility] Test 12:32:59 malignant neoplasm of colon (procedure) [code = 837879466] Future Scheduled 2023-02-02 [facility] for [facility] Test 12:32:59 malignant neoplasm of colon (procedure) [code = 076367233] Future Scheduled 2023-02-02 SHINGLES VACCINES [facility] [...] Clinicians Facility Department ID 2021-04-22 2021-04-22 Outpatient R DOUG [facility] [id number] Univers 09:10:00 09:10:00 THOMAS gill [facility] 2021-04-22 2021-04-22 Imm/Inj Nurse, Adc Pob Immunization [facility] [id number] Univers 09:10:00 09:10:00 Visit Thomas Pires [id number] ity of [facility] [id number] [place] PROFESSIO [id number] Ia dical [facility] [address] [facility] 2020-10-21 2020-10-21 Outpatient HENRY STEPHANY [facility] [id number] [place] 00:00:00 00:00:[address] 2020-07-06 2020-07-06 Outpatient [facility] [id number] Univers 10:35:00 10:35:00 ity [facility] 2020-06-08 2020-06-08 Outpatient [facility] [id number] Univers 10:35:00 [facility]:35:[facility] 2020-05-07 Urgent Provider, [facility] [id number] 10:38:56 10:58:56 Care [facility] [id number] Care [place] [id number] Professio [id number] nal [facility] [address] 2020-05-07 2020-05-07 Urgent Provider, [facility] [id number] Univers 10:38:56 10:58:56 Care Jhonatan [facility] [id number] ity of [place] [id number] [place]ef[place] as Professio [id number] [facility] [address] [place] [address] 2020-05-07 2020-05-07 Outpatient R LOUISA [facility] [id number] Univers 10:40:00 10:40:00 LAURYN gill [facility] 2020-05-07 2020-05-07 Sara Xiong [facility] [id number] Univers 00:00:00 00:00:00 [facility] [id number] i figueroa of [place] [id number] Lefty as Jatin [id number] Ia sharlene [facility] [address] Branch [address] Results This patient has no known results.
[2023-03-08] MEDS ORDERED: ONDANSETRON 4 MG/2 ML VIAL ONE ×2 (12:07→14:02)
[2023-03-08] MEDS ORDERED: KETOROLAC 30 MG/ML INJ ONE (12:07)
[2023-03-08] MEDS ORDERED: dexAMETHasone 10 MG/ML VIAL ONE (12:07)
[2023-03-08] MEDS ORDERED: NA CHLORIDE 0.9% 1,000 ML ONE ×2 (12:08→14:02)
[2023-03-08 12:25] LABS: Absolute Lymphocytes (CBC) 2.6 K/uL (0.7-4.9); Hematocrit 56.2 % (39.6-49.0); Lymphocytes % 20.2 % (15.3-44.8); MCV 92.6 fL (80-100); MPV 7.8 fL (7.6-11.3); Platelets 222 thou/uL (152-406); RBC Red Blood Cell Count 6.07 M/uL (4.33-5.43)
[2023-03-08 12:35] LABS: Urine Bacteria None Seen /HPF (<20); Urine Bilirubin NEGATIVE (Negative); Urine Blood Negative (Negative); Urine Clarity Extremely Turbid (Clear); Urine Color Light-Yellow (Yellow); Urine Glucose NEGATIVE (Negative); Urine Mucus Slight /HPF (None Seen); Urine Protein NEGATIVE (Negative); Urine RBC <5 /HPF (None Seen); Urine Urobilinogen Normal (Normal)
[2023-03-08 12:48] LABS: Albumin 3.5 g/dL (3.4-5.0); Potassium 4.6 mEq/L (3.5-5.1); Protein, Total 8.3 g/dL (6.4-8.2)
--- NOTE | 2023-03-08 13:59 | EDPHYS ---
Physician Documentation [facility] Name: Will Dwyer Age: 53 yrs Sex: Male : 1970 Arrival Date: 03/08/2023 Time: 11:14 Bed 9 Private MD: ARTHUR Physician Matt Mcleod HPI: 03/08 13:48 This 53 yrs old Male presents to ER via Ambulatory with complaints of Back adry Pain. 13:48 The patient presents with pain that is acute, with no known mechanism of injury, that adry is chronic, and decreased range of motion. The symptoms are located in the low back, lumbar area, left low back and right low back. Onset: The symptoms/episode began/occurred 1 week(s) ago. The pain radiates to the lumbar area, low back area and left low back. Associated signs and symptoms: Pertinent positives: none. The problem was sustained from unknown cause. Modifying factors: The patient symptoms are alleviated by remaining still, rest, specific position, the patient symptoms are aggravated by any movement, bending, coughing. Severity of symptoms: At their worst the symptoms were moderate, in the emergency department the symptoms are unchanged. The patient has experienced similar episodes in the past, a few times. Historical: - Allergies: 11:47 No Known Allergies; aa5 - PMHx: 11:47 Arthritis; aa5 - PSHx: 11:47 lap band sx; aa5 - Immunization history:: Adult Immunizations unknown. - Social history:: Smoking status: Patient denies any tobacco usage or history of. ROS: 13:50 Constitutional: Negative for fever, chills, and weight loss, Eyes: Negative for injury, adry pain, redness, and discharge, ENT: Negative for injury, pain, and discharge, Neck: Negative for injury, pain, and swelling, Cardiovascular: Negative for chest pain, palpitations, and edema, Respiratory: Negative for shortness of breath, cough, wheezing, and pleuritic chest pain, Abdomen/GI: Negative for abdominal pain, nausea, vomiting, diarrhea, and constipation, : Negative for injury, bleeding, discharge, and swelling, MS/Extremity: Negative for injury and deformity, Skin: Negative for injury, rash, and discoloration, Neuro: Negative for headache, weakness, numbness, tingling, and seizure, Psych: Negative for depression, anxiety, suicide ideation, homicidal ideation, and hallucinations, Allergy/Immunology: Negative for hives, rash, and allergies, Endocrine: Negative for neck swelling, polydipsia, polyuria, polyphagia, and marked weight changes, Hematologic/Lymphatic: Negative for swollen nodes, abnormal bleeding, and unusual bruising, 13:50 Back: Positive for pain with movement, radiated pain, of the left low back and right low back, Exam: 13:50 Constitutional: This is a well developed, well nourished patient who is awake, alert, adry and in no acute distress. Head/Face: Normocephalic, atraumatic. Eyes: Pupils equal round and reactive to light, extra-ocular motions intact. Lids and lashes normal. Conjunctiva and sclera are non-icteric and not injected. Cornea within normal limits. Periorbital areas with no swelling, redness, or edema. ENT: Nares patent. No nasal discharge, no septal abnormalities noted. Tympanic membranes are normal and external auditory canals are clear. Oropharynx with no redness, swelling, or masses, exudates, or evidence of obstruction, uvula midline. Mucous membranes moist. Neck: Trachea midline, no thyromegaly or masses palpated, and no cervical lymphadenopathy. Supple, full range of motion without nuchal rigidity, or vertebral point tenderness. No Meningismus. Chest/axilla: Normal chest wall appearance and motion. Nontender with no deformity. No lesions are appreciated. Cardiovascular: Regular rate and rhythm with a normal S1 and S2. No gallops, murmurs, or rubs. Normal PMI, no JVD. No pulse deficits. Respiratory: Lungs have equal breath sounds bilaterally, clear to auscultation and percussion. No rales, rhonchi or wheezes noted. No increased work of breathing, no retractions or nasal flaring. Abdomen/GI: Soft, non-tender, with normal bowel sounds. No distension or tympany. No guarding or rebound. No evidence of tenderness throughout. Male : Normal genitalia with no discharge or lesions. Skin: Warm, dry with normal turgor. Normal color with no rashes, no lesions, and no evidence of cellulitis. MS/ Extremity: Pulses equal, no cyanosis. Neurovascular intact. Full, normal range of motion. Neuro: Awake and alert, GCS 15, oriented to person, place, time, and situation. Cranial nerves II-XII grossly intact. Motor strength 5/5 in all extremities. Sensory grossly intact. Cerebellar exam normal. Normal gait. Psych: Awake, alert, with orientation to person, place and time. Behavior, mood, and affect are within normal limits. 13:50 Back: pain, that is moderate, of the lumbar area, left low back and right low back, ROM is painful, with flexion, with extension, normal spinal alignment noted, CVA tenderness, is absent, vertebral tenderness, is not appreciated, muscle spasm, is appreciated in the left low back, left mid back, right mid back and right low back, Vital Signs: 11:48 BP 141 / 99; Pulse 84; Resp 18 S; Temp 97(TE); Pulse Ox 100% on R/A; Weight 136.08 kg aa5 (R); Height 6 ft. 4 in. (R); 13:50 BP 133 / 91; Pulse 69; Resp 18; Pulse Ox 97% on R/A; db 14:15 BP 128 / 91; Pulse 63; Resp 16; Pulse Ox 98% on R/A; db 16:21 BP 126 / 80; Pulse 65; Resp 19; Pulse Ox 100% on R/A; me1 11:48 Body Mass Index 36.52 (136.08 kg, 193.04 cm) aa5 MDM: 11:17 Patient medically screened. adry 13:55 Differential diagnosis: Fatigue Fracture Joint Injury Obesity Pyelonephritis Renal adry Infarction ruptured disc, Scoliosis spinal injury, sprain, Ureterolithiasis vertebral fracture. Data reviewed: vital signs, nurses notes, diagnostic data from outside facility, radiologic studies, CT scan, lab test result(s), radiologic studies, CT scan. Consideration of Admission/Observation Escalation of care including admission/observation considered. I considered the following discharge prescriptions or medication management in the emergency department Medications were administered in the Emergency Department. See MAR. Independent interpretation of the following test(s) in the Emergency Department CT Scan: My interpretation is from [place] reviewed. Historians other than the Patient: pt well informed. Care significantly affected by the following chronic conditions: Obesity, arthritis. 03/08 11:34 Order name: CBC with Diff; Complete Time: 13:23 [facility] 03/08 11:34 Order name: Comprehensive Metabolic Panel; Complete Time: 13:23 [facility] 03/08 11:34 Order name: Urinalysis w/ reflexes; Complete Time: 13:23 adry Administered Medications: 12:17 Drug: Ketorolac IVP 30 mg IVP once Route: IVP; Site: left wrist; kc6 13:05 Follow up: Response: No adverse reaction kc6 12:18 Drug: Ondansetron IVP 4 mg IVP once; over 2 minutes Route: IVP; Site: left wrist; kc6 13:05 Follow up: Response: No adverse reaction kc6 12:18 Drug: NS 0.9% IV 1000 ml IV at 1 bolus Per protocol; 1000 mL bolus Route: IV; Rate: 1 kc6 bolus; Site: left wrist; 14:51 Follow up: IV Status: Completed infusion; IV Intake: 1000ml db 12:18 Drug: Decadron - Dexamethasone IVP 10 mg IVP once Route: IVP; Site: left wrist; kc6 13:05 Follow up: Response: No adverse reaction kc6 13:50 Drug: NS 0.9% IV 1000 ml IV at 1 bolus Per protocol; 1000 mL bolus Route: IV; Rate: 1 db bolus; Site: left antecubital; 14:51 Follow up: IV Status: Completed infusion db 13:50 Drug: fentaNYL (PF) IVP 50 mcg IVP once Route: IVP; Site: left antecubital; db 14:51 Follow up: Response: No adverse reaction db 13:50 Drug: Ondansetron IVP 4 mg IVP once; over 2 minutes Route: IVP; Site: left antecubital; db 14:51 Follow up: Response: No adverse reaction db Disposition Summary: 03/08/23 13:58 Discharge Ordered Notes: Location: Home adry Problem: new adry Symptoms: have improved adry Condition: Stable adry Diagnosis - Sciatica adry - Low back pain adry - Unspecified kidney failure - insufficency adry - Dehydration adry Followup: adry - With: Private Physician - When: 2 - 3 days - Reason: Recheck today's complaints, Continuance of care, Re-evaluation by your physician Followup: adry - With: Tina Higgins MD - When: 2 - 3 days - Reason: Recheck today's complaints, Re-evaluation by your physician Followup: adry - With: Emeka Alfaro MD - When: 2 - 3 days - Reason: Recheck today's complaints, Re-evaluation by your physician Discharge Instructions: - Discharge Summary Sheet [facility] - Acute Back Pain, Adult [facility] - Chronic Back Pain adry - Dehydration, Adult [facility] - Musculoskeletal Pain [facility] - Back Injury Prevention, [id number] [facility] - Chronic Back Pain, [id number] [facility] - Acute Kidney Injury, Adult [facility] Forms: - Medication Reconciliation Form [facility] - Thank You Letter adry - Antibiotic Education [facility] - Prescription Opioid Use [facility] - Patient Portal Instructions [facility] - Leadership Thank You Letter [facility] Prescriptions: - dexamethasone 2 mg Oral tablet - take 2 tablet ORAL route every 12 hours; 8 tablet; Refills: 0, Product [facility] Selection Permitted - acetaminophen-codeine 300-30 mg Oral tablet - take 2 tablet ORAL route every 6 hours; 18 tablet; Refills: 0, Product [facility] Selection Permitted - Cyclobenzaprine 10 mg Oral Tablet - take 1 tablet ORAL route every 8 hours As needed; 30 tablet; Refills: 0, [facility] Product Selection Permitted Signatures: Dispatcher [employer] Matt Mccoy MD MD cha Calderon, Audri, RN RN aa5 Mimi Florez RN RN kc6 Jess Cleary RN RN db
--- NOTE | 2023-03-08 13:59 | ER ---
Nurse's Notes [facility] Name: Will Dwyer Age: 53 yrs Sex: Male : 1970 Arrival Date: 03/08/2023 Time: 11:14 Bed 9 Private MD: Diagnosis: Sciatica;Low back pain;Unspecified kidney failure-insufficency;Dehydration Presentation: 03/08 11:48 Chief complaint: Patient states: left low back pain radiating down left leg that began aa5 2 weeks ago. Coronavirus screen: At this time, the client does not indicate any symptoms associated with coronavirus-19. Ebola Screen: Patient denies travel to an Ebola-affected area in the 21 days before illness onset. Initial Sepsis Screen: Does the patient meet any 2 criteria? No. Patient's initial sepsis screen is negative. Does the patient have a suspected source of infection? No. Patient's initial sepsis screen is negative. Risk Assessment: Do you want to hurt yourself or someone else? Patient reports no desire to harm self or others. Onset of symptoms was February 2023. 11:48 Method Of Arrival: Ambulatory aa5 11:48 Acuity: RAQUEL 3 aa5 Triage Assessment: 14:51 General: Behavior is cooperative. db Historical: - Allergies: 11:47 No Known Allergies; aa5 - PMHx: 11:47 Arthritis; aa5 - PSHx: 11:47 lap band sx; aa5 - Immunization history:: Adult Immunizations unknown. - Social history:: Smoking status: Patient denies any tobacco usage or history of. Screenin:00 [facility] ED Fall Risk Assessment (Adult) History of falling in the last 3 months, kc6 including since admission No falls in past 3 months (0 pts) Confusion or Disorientation No (0 pts) Intoxicated or Sedated No (0 pts) Impaired Gait No (0 pts) Mobility Assist Device Used No (0 pt) Altered Elimination No (0 pt) Score/Fall Risk Level 0 - 2 = Low Risk. Abuse screen: Denies threats or abuse. Denies injuries from another. Nutritional screening: No deficits noted. Tuberculosis screening: No symptoms or risk factors identified. Assessment: 14:30 Reassessment: Patient states feeling better. Patient states symptoms have improved. db General: Appears in no apparent distress. comfortable. Pain: Complains of pain in back. Neuro: Level of Consciousness is awake, alert, obeys commands, Oriented to person, place, time, situation, Appropriate for age. Respiratory: Airway is patent Respiratory effort is even, unlabored, Respiratory pattern is regular, symmetrical. Musculoskeletal: Circulation, motion, and sensation intact. Capillary refill < 3 seconds, Range of motion: intact in all extremities. 14:34 Reassessment: Patient appears in no apparent distress at this time. pt moved from bed 7 iw to bed 9 for completion of IV fluids. 14:49 Reassessment: Patient appears in no apparent distress at this time. Patient and/or db family updated on plan of care and expected duration. Pain level reassessed. Patient is alert, oriented x 3, equal unlabored respirations, skin warm/dry/pink. Vital Signs: 11:48 BP 141 / 99; Pulse 84; Resp 18 S; Temp 97(TE); Pulse Ox 100% on R/A; Weight 136.08 kg aa5 (R); Height 6 ft. 4 in. (R); 13:50 BP 133 / 91; Pulse 69; Resp 18; Pulse Ox 97% on R/A; db 14:15 BP 128 / 91; Pulse 63; Resp 16; Pulse Ox 98% on R/A; db 16:21 BP 126 / 80; Pulse 65; Resp 19; Pulse Ox 100% on R/A; me1 11:48 Body Mass Index 36.52 (136.08 kg, 193.04 cm) aa5 ED Course: 11:15 Patient arrived in ED. rg4 11:17 Matt Mcleod MD is Attending Physician. adry 11:47 Arm band placed on. aa5 11:49 Triage completed. aa5 12:00 Patient has correct armband on for positive identification. Bed in low position. Call kc6 light in reach. Side rails up X 1. Client placed on continuous cardiac and pulse oximetry monitoring. NIBP monitoring applied. 12:09 Jess Cleary, AMARI is Primary Nurse. db 12:17 Urinalysis w/ reflexes Sent. kc6 12:17 Comprehensive Metabolic Panel Sent. kc6 12:17 CBC with Diff Sent. kc6 12:18 Inserted saline lock: 22 gauge in left wrist, using aseptic technique. Blood collected. kc6 Patient maintains SpO2 saturation greater than 95% on room air. 13:57 Tina Higgins MD is Referral Physician. [facility] 13:57 Emeka Alfaro MD is Referral Physician. [facility] 14:59 Provided Education on: POC. Verbalized understanding. . me1 14:59 No provider procedures requiring assistance completed. me1 16:22 IV discontinued, intact, bleeding controlled, No redness/swelling at site. Pressure me1 dressing applied. Administered Medications: 12:17 Drug: Ketorolac IVP 30 mg IVP once Route: IVP; Site: left wrist; kc6 13:05 Follow up: Response: No adverse reaction kc6 12:18 Drug: Ondansetron IVP 4 mg IVP once; over 2 minutes Route: IVP; Site: left wrist; kc6 13:05 Follow up: Response: No adverse reaction kc6 12:18 Drug: NS 0.9% IV 1000 ml IV at 1 bolus Per protocol; 1000 mL bolus Route: IV; Rate: 1 kc6 bolus; Site: left wrist; 14:51 Follow up: IV Status: Completed infusion; IV Intake: 1000ml db 12:18 Drug: Decadron - Dexamethasone IVP 10 mg IVP once Route: IVP; Site: left wrist; kc6 13:05 Follow up: Response: No adverse reaction kc6 13:50 Drug: NS 0.9% IV 1000 ml IV at 1 bolus Per protocol; 1000 mL bolus Route: IV; Rate: 1 db bolus; Site: left antecubital; 14:51 Follow up: IV Status: Completed infusion db 13:50 Drug: fentaNYL (PF) IVP 50 mcg IVP once Route: IVP; Site: left antecubital; db 14:51 Follow up: Response: No adverse reaction db 13:50 Drug: Ondansetron IVP 4 mg IVP once; over 2 minutes Route: IVP; Site: left antecubital; db 14:51 Follow up: Response: No adverse reaction db Medication: 14:30 VIS not applicable for this client. db Intake: 14:51 IV: 1000ml; Total: 1000ml. db Outcome: 13:58 Discharge ordered by . [facility] 16:21 Discharged to home ambulatory, me1 16:21 Condition: stable 16:21 Discharge instructions given to patient, Instructed on discharge instructions, follow up and referral plans. medication usage, Demonstrated understanding of instructions, follow-up care, medications, Prescriptions given X 3, 16:22 Patient left the ED. me1 Signatures: Matt Mcleod MD MD cha Williams, Irene, RN RN iw Betsy Jiang, RN RN Kizzy Rodriguez4 Mimi Florez, RN RN kc6 Jess Cleary, RN RN Laurie Dueñas, AMARI RN me1 Corrections: (The following items were deleted from the chart) 14:30 Provided Education on: DISCHARGED. [facility] 14:30 No provider procedures requiring assistance completed. [facility] 14:30 IV discontinued, intact, bleeding controlled, No redness/swelling at site. [facility] 14:30 Discharged to home ambulatory, with family, [facility] 14:30 Condition: stable [facility] 14:30 Discharge instructions given to patient, Instructed on discharge instructions, db follow up and referral plans. db
[2023-03-08] MEDS ORDERED: FENTANYL CITR 100 MCG/2 ML ONE (14:02)
[2023-03-08 17:05] VITALS: TEMP 97
[2023-03-08 17:10] VITALS: BP 126/80; O2SAT 100
== END 2023-03-08 16:22 | disposition home or self-care (01) ==
LOC: ER 11:14
DX: M54.30 Sciatica, unspecified side (principal); E86.0 Dehydration; N19 Unspecified kidney failure
CPT/HCPCS: 85025; 81001; 36415; 80053; 99285; J3010; J1100; J2405 ×2; J7030 ×2